=== PATIENT | male | born 1970 | race Caucasian/White ===

== ENCOUNTER 2023-09-05 19:18 | Emergency (ER) | payer SELFPAY ==
[~2023-09-05] VITALS: Ht 172.7 cm; Wt 80.0 kg
[2023-09-05 19:35] VITALS: BP 156/96; PULSE 80; RESP 18; TEMP 98; O2SAT 98
[2023-09-05] MEDS: HYDROCODONE/ACETAMINOPHEN 5/325MG TABLET PO STA (20:26)
[2023-09-05] MEDS: IBUPROFEN 600MG TABLET PO STA (20:28)
[2023-09-05] MEDS: TETANUS, DIPHTHERIA, PERTUSSIS VAC/PF 0.5ML (>10YR OLD) IM ONE (20:53)
[2023-09-05] MEDS ORDERED: NAPR-677 MT (21:04)
[2023-09-05] MEDS: LIDOCAINE HCL/EPINEPHRINE 1%-EPI 1:100,000 20 ML VIAL INFIL ONE (21:17)
== END 2023-09-05 21:37 | disposition home or self-care (01) ==
LOC: ER 19:18
DX: S01.01XA Laceration without foreign body of scalp, initial encounter (principal); F41.9 Anxiety disorder, unspecified; V49.49XA Driver injured in collision with other motor vehicles in traffic accident, initial encounter; Y93.89 Activity, other specified; Y92.89 Other specified places as the place of occurrence of the external cause; Y99.8 Other external cause status
CPT/HCPCS: 73120; 90715; 12001; 90471; 99283; J3490; Z7610 ×2